=== PATIENT | female | born 1935 | race Caucasian/White ===

== ENCOUNTER 2017-08-06 11:06 | Inpatient (IN) | payer OTHER ==
[~2017-08-06] VITALS: Ht 177.8 cm; Wt 60.8 kg
[~2017-08-06 11:06] MED LIST: ASPIRIN EC81 M1 PO; ASPIRIN325 PO; BIOTIN800 MCG PO; CENTRUM SILVER1 EAC4 PO; ENOXAPARIN40 MG/0.1 SUBQ; IRON325 PO; METAMUCIL PAC1 UDPKT PO; MILK OF MA2400 MG/10 PO; NIFEDIPINE ER30 M1 PO; OSTEO BI-FLEX1 EAC1 PO; PERCOCET PO; STRONTIUM NITRAT1 GM; VITAMIN B-12500 MCG PO; WOMAN'S LAXATIVE5 M1 PO; ZANTAC 150MG T150 MG PO
[2017-08-06 11:11] VITALS: BP 160/62
[2017-08-06 12:11] LABS: HEMATOCRIT 24.1 % (37.0-47.0); HEMOGLOBIN 8.1 gm/dL (12.0-15.0); MCH 35.4 pg (26.0-34.0); MCHC 33.7 g/dL (28.0-37.0); MPV 8.3 fl. (7.2-11.1); NUCLEATED RBCS 0 /100WBC; PLATELET COUNT* 398 thou/uL (150-400); RDW-CV 14.1 % (10.5-14.5)
[2017-08-06 12:17] LABS: ANION GAP 10 mmol/L (7-16); BUN 35 mg/dL (7-18); CALCIUM 8.8 mg/dL (8.5-10.1); CHLORIDE 102 mmol/L (98-107); CO2 26 mmol/L (21-32); CREATININE 1.1 mg/dL (0.6-1.3); GLUCOSE 145 mg/dL (70-99); POTASSIUM 4.6 mmol/L (3.5-5.1); SODIUM 138 mmol/L (136-145)
[2017-08-06 12:18] LABS: APTT 27.5 Seconds (25.0-31.3); INR 0.9; PROTIME 9.2 Seconds (9.20-11.50)
[2017-08-06 12:24] LABS: ALBUMIN 3.4 g/dL (3.4-5.0); ALKALINE PHOSPHATASE 69 U/L (46-116); SGOT 57 U/L (15-37); SGPT 33 U/L (30-65); TOTAL BILIRUBIN 0.8 mg/dL (<0.1-1.0); TOTAL PROTEIN 6.3 g/dL (6.4-8.2); TROPONIN-I LEVEL <0.06 ng/mL (<0.06)
[2017-08-06 12:24] LABS: URINE BLOOD NEGATIVE (Negative); URINE CLARITY CLEAR; URINE COLOR YELLOW; URINE GLUCOSE-RANDOM NEGATIVE (Negative); URINE KETONES TRACE (Negative); URINE LEUKOCYTES-REFLEX NEGATIVE (Negative); URINE NITRITE-REFLEX NEGATIVE (Negative); URINE PROTEIN NEGATIVE (Negative); URINE SPECIFIC GRAVITY 1.025 (1.005-1.030); URINE UROBILINOGEN 0.2 E.U./dl (0.2-1.0)
[2017-08-06 12:26] LABS: ICTOTEST (BILI CONFIRMATORY) Negative (Negative); URINE BILIRUBIN 1+ (Negative)
[2017-08-06 12:28] LABS: ABSOLUTE BASOPHILS 0.1 thou/uL (0.0-0.2); ABSOLUTE LYMPHOCYTES 0.6 thou/uL (0.8-5.3); ABSOLUTE MONOCYTES 0.8 thou/uL (0.0-1.2); ABSOLUTE NEUTROPHILS 10.4 thou/uL (1.6-8.1); PLATELET ESTIMATE ADEQUATE
--- NOTE | 2017-08-06 12:33 | NUR ---
PT GAVE ALL JEWELRY (1 YELLOW METAL NECKLACE W/ WHALE TALE PENDANT, 1 WHITE METAL RING W/ MULTIPLE WHITE STONES, 6 WHITE METAL RINGS W/O STONES, 1 WHITE WATCH, 2 WHITE METAL BRACELETS OF WHICH ONE HAS CHARMS) TO FAMILY TO TAKE HOME.
[2017-08-06] MEDS ORDERED: NORVASC5 MG PO (12:51)
[2017-08-06] MEDS ORDERED: OSTEO BI-FLEX1 EAC1 PO (12:52)
[2017-08-06] MEDS ORDERED: TRAMADOL 50 MG50 MG PO (12:52)
[2017-08-06] MEDS ORDERED: ZANTAC 150MG T150 MG PO (12:52)
[2017-08-06 14:41] VITALS: BP 116/64
--- NOTE | 2017-08-06 17:48 | NUR ---
RECEIEVED REPORT FROM TIFFANIE IN ER AND ASSUMED CARE OF PT @ 1450.PT IS A/O X4 WITH SOME CONFUSION, BP SLIGHTLY ELEVATED @ 146/64, TRACING SINUS TACH ON MONITOR, LUNGS SOUND CLEAR, LIN IN PLACE DUE TO IMMOBILITY FROM HIP FRACTURE. PT IS CALM AND COOPERATIVE, DENIES PAIN AT TIME OF ASSESSMENT. PT WILL REMAIN ON BEDREST UNTIL AFTER SURGERY TOMORROW.FAMILY AT BEDSIDE GOING TO TAKE VALUABLE PERSONAL BELONGINGS HOME. PT EDUCATED ON FALL PRECUATIONS AND CALL LIGHT IN PLACE.
--- NOTE | 2017-08-06 18:40 | NUR ---
SPEECH THERAPY CAME TO SEE PT AND CHANGED HER DIET TO NECTAR THICK LIQUIDS AND MECH-GROUND AFTER PT WAS COUGHING WHEN SWALLOWING LIQUIDS.PT WILL BE NPO AFTER MIDNIGHT FOR SURGERY IN AM. CONSENTS HAVE BEEN OBTAINED AND SIGNED.PT VISITING WITH FAMILY MEMBERS AT BEDSIDE. FALL PRECAUTIONS AND CALL LIGHT IN PLACE. HOURLY ROUNDING COMPLETED FOR PT SAFETY.PT TO RECIEVE ONE UNIT OF BLOOD PER ORTHO ORDER PRIOR TO SURGERY TONIGHT.
[2017-08-06 20:00] VITALS: BP 118/60
[2017-08-06 20:39] VITALS: BP 109/64; BP 114/58; BP 117/58; BP 120/61; BP 123/56
[2017-08-07] VITALS (8 sets, daily range): BP systolic 102–146; BP diastolic 54–67
[2017-08-07 05:35] LABS: HEMOGLOBIN 7.3 gm/dL (12.0-15.0); MCH 34.6 pg (26.0-34.0); MCHC 34.9 g/dL (28.0-37.0); MPV 8.3 fl. (7.2-11.1); RBC 2.12 mil/uL (4.20-5.00); RDW-CV 18.6 % (10.5-14.5); WBC 8.8 thou/uL (4.0-11.0)
[2017-08-07 05:37] LABS: MCV 99.1 fL (80.0-100.0)
[2017-08-07 06:03] LABS: CALCIUM 7.8 mg/dL (8.5-10.1); CREATININE 0.8 mg/dL (0.6-1.3); MAGNESIUM 2.1 mg/dL (1.8-2.4); POTASSIUM 3.8 mmol/L (3.5-5.1)
--- NOTE | 2017-08-07 07:53 | NUR ---
A&O X4 CONFUSED AT TIMES. PT NEEDS REORIENTATION. GIVEN X1 UNIT OF BLOOD NO REACTION NOTED. PT HGB WAS LOW IN AM MD ORDERED SECOND UNIT OF BLOOD BEFORE SURGERY. PT ON BED REST. PT SR-ST ON THE MONITOR. PRE-OP CHECKLIST STARTED. VITALS WNL. FALL PRECATUIONS IN PLACE. HOURLY ROUNDING FOR SAFETY.
--- NOTE | 2017-08-07 09:38 | NUR ---
ASSUMED CARE OF PT THIS AM AROUND 0715- CELLULAR BIOLOGIST IN PLACE ORDERED, TRACING SR- UPON ASSESSMENT PT NOTED TO BE RESTING IN BED, FAMILY AT SIDE VISITING- PT A&O X3, WITH INTERMITTENT CONFUSION NOTED- BED REST IN PLACE INDICATED- LIN IN PLACE D/D CLEAR JEY URINE, CONTINENT OF BOWEL- LCTA, RESP EVEN AND UN-LABORED- VSS, O2 SAT 100% ON RA- NO C/O DYSPNEA NOTED- ABDOMEN SOFT/ROUND/NON-TENDER, BS X4 QUADS- LAST BM REPORTED 08/05/17- 2+ EDEMA WITH BRUISING NOTED TO UPPER RIGHT LOWER EXTREMITY R/T HIP FX- EXTERNAL ROTATION NOTED TO RIGHT LE, PERIPHERAL PULSES +1- IV NOTED TO LEFT AC INTACT, IVF INFUSING ORDERED- 1 UNIT OF BLOOD ORDERED TO BE STARTED PRIOR TO PLANNED SURGERY THIS AM- BLOOD STARTED INDICATED AT 0735- PACU HERE TO GET PT FOR SURGERY WITH PT LEAVING UNIT VIA BED AT 0813, BLOOD INFUSSING AT TIME OF TRANSFER- CLARIFICATION FOR OKAY FOR SURGERY VERIFIED WITH AND COMMUNICATED TO PACU- ALL NEEDS MET AT THIS TIME-WCTM
--- NOTE | 2017-08-07 12:59 | NUR ---
PT RETURNEDTO UNIT POST RIGHT ORIF @ 1220 VIA BED- VS 98.5 18 112/61 83 98% ON RA- CONTINUUOS PULSE O2 IN PLACE ORDERED- IVF RESSUMED TO LEFT AC ORDERED, IV ABT GIVEN PRESCIBED- I UNIT RBC REPORTED TO HAVE BEEN GIVEN DURRING PROCEDURE- PT A&O X4- DENIES PAIN- REGULAR DIET IN PLACE, NECTAR THICK LIQUIDS INDICATED- DRESSING IN PLACE TO RU HIP AND LOWER LEG, INTACT- ALL NEEDS MET AT THIS TIME-WCTM
--- NOTE | 2017-08-07 13:05 | EKG ---
[place] [address] ELECTROCARDIOGRAM REPORT Name: NJ GAYTAN Room: [address] ADM IN M.R.#: [id number] Admission: 08/06/17 Attend Phys: Rich Rivera, Discharge: Date of : 37 Report #: [id number] THIS REPORT FOR: //name// [facility] ED Test Date: 2017-08-06 Test Time: 11:24:01 Pat Name: NJ GAYTAN Department: Room: [facility] Gender: F Human Service Coordinator: Femi BETTS : 1935 Requested By: Irineo Sheppard Order Number: [id number] MD: Ze Cuello Measurements Intervals [place] Rate: 152 P: HI: QRS: 33 QRSD: 95 T: QT: 333 QTc: 530 Interpretive Statements NSR Low voltage, extremity leads RSR' in V1 or V2, probably normal variant Borderline T wave abnormalities Artifact in lead(s) II,III,aVF,V1,V2,V3,V4,V5,V6 Compared to ECG 11/19/2014 12:56:12 Low QRS voltage now present RSR' in V1 or V2 now present T-wave abnormality still present Electronically Signed On 08-07-2017 13:04:58 CDT by Ze Cuello [email or web address] <ELECTRONICALLY SIGNED> By: Flavia Cuello MD, [facility] 08/07/17 1304 1124 1124 Flavia Cuello MD, [facility] /EPI
--- NOTE | 2017-08-07 13:06 | EKG ---
[place] [address] ELECTROCARDIOGRAM REPORT Name: NJ GAYTAN Room: [address] ADM IN M.R.#: [id number] Admission: 08/06/17 Attend Phys: Rich Rivera, Discharge: Date of : 37 Report #: [id number] THIS REPORT FOR: //name// [facility] ED Test Date: 2017-08-06 Test Time: 14:12:26 Pat Name: NJ GAYTAN Department: Room: [facility] Gender: F Golf Caddy: : 1935 Requested By: Irineo Sheppard Order Number: [id number] MD: Ze Cuello Measurements Intervals [place] Rate: 104 P: 55 ME: 149 QRS: 24 QRSD: 92 T: 86 QT: 337 QTc: 444 Interpretive Statements Sinus tachycardia Low voltage, extremity leads Compared to ECG 11/19/2014 12:56:12 Low QRS voltage now present Ventricular premature complex(es) no longer present T-wave abnormality no longer present Electronically Signed On 08-07-2017 13:06:22 CDT by Ze Cuello [email or web address] <ELECTRONICALLY SIGNED> By: Flavia Cuello MD, [facility] 08/07/17 [phone] Flavia Cuello MD, [facility] /EPI
[2017-08-07 13:38] LABS: HEMOGLOBIN 10.5 gm/dL (12.0-15.0)
--- NOTE | 2017-08-07 17:08 | NUR ---
PT CURRENLTY SETTING UP IN BED, EATING DINNER- PROGRAM ARCHITECT IN PLACE AND CONTINUED ORDERED, TRACING SR- IV TO LEFT AC INTACT, IVF INFUSING PRESCIBED- HGB POST ORIF RESULTED AT 10.5 @ 1326- CPK NOTED TO BE DECREASING IT RESULTS AT 477- DRESSINGS REMAIN INTACT TO RIGHT HIP AND RLE, NO VISIBLE DRAINAGE NOTED- SCD'S IN PLACE ORDERED- ABDUCTION PILLOW IN PLACE INDICATED- PT CALLED TO COMMUNICATE THAT THEY WOULD BE DOING ASSESSMENT TIMBO 08/08/17- PT C/O PAIN X1, PRN OXY GIVEN AT 1625- PT REPORTS MEDICAITONS TO BE EFFECTIVE- CALL LIGHT AND PERSONAL BELONGINGS WITH IN REACH- PT CHECKED ON FREQUENTLY R/T SAFETY/NEEDS- ALL NEEDS MET AT THIS TIME-WCTM
[2017-08-08] VITALS (7 sets, daily range): BP systolic 93–123; BP diastolic 45–62
--- NOTE | 2017-08-08 05:32 | NUR ---
A&O X4 CALM COOPERITVE. PT NEEDS REORINTATION AT TIMES. PT ON TOE TAP WIEGHT BEARING. SR ON THE MONITOR. LIN FOR IMOBLIZATION. DENIES PAIN. ABDUCTION PILLOW. VITALS WNL. FALL PRECATUIONS IN PLACE. HOURLY ROUNDING FOR SAFETY.
[2017-08-08 05:38] LABS: HEMOGLOBIN 8.7 gm/dL (12.0-15.0)
[2017-08-08 05:46] LABS: CALCIUM 7.6 mg/dL (8.5-10.1); CREATININE 0.7 mg/dL (0.6-1.3); POTASSIUM 3.8 mmol/L (3.5-5.1)
--- NOTE | 2017-08-08 13:38 | NUR ---
ASSUMED PT CARE AT 0700 PT IS ALERT AND ORIENTED X 4 PT HAS A HISTORY OF FALLS PT IS A FALL RISK BED ALARM IS ON, PT STATES SHE HAS SOME PAIN AVE PAIN MEDS FOR PT TO WORK WITH PHYSICAL THERAPY WHICH PT DID PT HAS WILLIAMOR REBEKAH AND DELIA FOR IMMOBALIZATION, DR MORALES ORDERED TO STOP TELEMETY PT IS MED SURG STATUS PT IS BEIN TRANSFERED TO ORTHO SURG AVE REPORT TO MADDISON AND PT WAS TRANSFERED TO RM 104
--- NOTE | 2017-08-08 14:30 | NUR ---
ASSUMED CARE OF PATIENT AT 1338 AFTER TRANSFER TO ROOM 104 FROM TELEMETRY UNIT. PATIENT AWAKE, ALERT, AND ORIENTED. NO IV ACCESS. STARTED NEW IV IN PATIENT'S LEFT AC. IVF FLUIDS RESTARTED AND ANTIBIOTIC INFUSING AT THIS TIME. PHYSICAL ASSESSMENT COMPLETED. VITAL SIGNS STABLE. NURSING WILL CONTINUE TO MONITOR.
[2017-08-08 15:10] LABS: IgA 127 mg/dL (64-422)
[2017-08-08 15:10] LABS: IgA 127 mg/dL (64-422)
--- NOTE | 2017-08-08 16:43 | NUR ---
PT.HAS REHAB EVAL ORDER. DID NOT DO WELL IN PT TODAY BUT WAS HER FIRST TIME. DISCUSSED WITH HER PLAN B IF INSURANCE DOESN'T AUTH REHAB OR REHAB CANT TAKE. SHE SEEMED A BIT CONFUSED ON THINGS. SHE DID LAY FOR HRS ON HER FLOOR BEFORE SON FOUND HER. SHE SAID SHE WILL MOST LIKELY NOT BE ABLE TO LIVE ALONE AGAIN. SHE MIGHT BE ABLE TO GO LIVE WIHT HER SON. HE HAS A BI HOUSE BUT HAS STAIRS. SHE WOULD LIKE REFERRAL MADE TO [facility] FOR SNF AT THIS TIME FOR PLAN B. FAXED REFERRAL TO YARELIS/[facility]KEY. WILL NEED INSURANCE AUTH FOR SNF. WILL CALL SON TOMORROW.
--- NOTE | 2017-08-08 17:53 | NUR ---
PATIENT REMAINS ALERT AND ORIENTED APPROPRIATELY. HAS EPISODES OF CONFUSION AT TIMES BUT IS EASILY REORIENTED. ABDUCTOR PILLOW IN PLACE. LIN CATHETER HAS BEEN DISCONTINUED. PATIENT HAS DECLINED PAIN MEDICATION SINCE SHE TRANSFERRED TO THIS UNIT. FAMILY IN ROOM AT THIS TIME. DENIES NEEDS. CALL LIGHT WITHIN REACH. NURSING WILL CONTINUE TO MONITOR.
[2017-08-09 00:19] VITALS: BP 114/53
--- NOTE | 2017-08-09 00:33 | NUR ---
PATIENT RESTING QUIETLY ON HOURLY ROUNDS. REPOSITONED EVERY TWO HOURS. COCCYX RED, BLANCHABLE. DRESSING TO RIGHT HIP IS DRY AND INTACT. VITALS STABLE ON ROOM AIR. CONTINUE TO MONITOR.
[2017-08-09 04:20] VITALS: BP 126/65
[2017-08-09 05:32] LABS: ALBUMIN 1.9 g/dL (3.4-5.0); ALKALINE PHOSPHATASE 43 U/L (46-116); ANION GAP 7 mmol/L (7-16); BUN 8 mg/dL (7-18); CALCIUM 7.6 mg/dL (8.5-10.1); CHLORIDE 110 mmol/L (98-107); CHOLESTEROL 107 mg/dL (<200); CO2 26 mmol/L (21-32); CREATININE 0.6 mg/dL (0.6-1.3); GLUCOSE 98 mg/dL (70-99); HDL CHOLESTEROL 56 mg/dL (>40); LDL CHOLESTEROL 40 mg/dL (<100); POTASSIUM 3.1 mmol/L (3.5-5.1); SGOT 37 U/L (15-37); SGPT 26 U/L (30-65); SODIUM 143 mmol/L (136-145); TC:HDL 1.9 Ratio (Not establshd); TOTAL BILIRUBIN 1.4 mg/dL (<0.1-1.0); TOTAL PROTEIN 4.6 g/dL (6.4-8.2); TRIGLYCERIDE 59 mg/dL (<150); VLDL 12 mg/dL (<40)
[2017-08-09 05:42] LABS: ABSOLUTE LYMPHOCYTES 0.9 thou/uL (0.8-5.3); ABSOLUTE MONOCYTES 0.8 thou/uL (0.0-1.2); ABSOLUTE NEUTROPHILS 4.7 thou/uL (1.6-8.1); BASOPHILS 0.1 %; EOSINOPHILS 0.4 %; HEMATOCRIT 22.6 % (37.0-47.0); HEMOGLOBIN 7.8 gm/dL (12.0-15.0); LYMPHOCYTES 14.4 %; MCH 33.3 pg (26.0-34.0); MCHC 34.7 g/dL (28.0-37.0); MONOCYTES 12.1 %; MPV 8.3 fl. (7.2-11.1); NUCLEATED RBCS 0 /100WBC; PLATELET COUNT* 317 thou/uL (150-400); RBC 2.35 mil/uL (4.20-5.00); WBC 6.4 thou/uL (4.0-11.0)
[2017-08-09 06:04] LABS: SERUM ASSESSMENT Clear
[2017-08-09 10:20] VITALS: BP 139/72
--- NOTE | 2017-08-09 11:31 | NUR ---
CM SPOKE WITH SON,BRIANNA AND PT. SON SAID NO TO [facility]. HE WOULD LIKE REFERRALS MADE TO [facility],[place] AND [facility]. HE WILL GO TO TOUR EACH ONE TODAY. LEFT VM FOR VERNA/PRETTY AND FAXED REFERRAL. SPOKE WITH [facility] AND FAXED REFERRAL, FAXED TO JUANA /VI AND LEFT HER A VM.
[2017-08-09 14:11] LABS: IgG 371 mg/dL (700-1600); IgM 25 mg/dL (26-217)
[2017-08-09 14:11] LABS: IgG 380 mg/dL (700-1600); IgM 28 mg/dL (26-217)
[2017-08-09 16:05] VITALS: BP 121/57
--- NOTE | 2017-08-09 16:26 | NUR ---
RECEIVED CONSULT FOR POSSIBLE REHAB ADMISSION. CONSULT HAS BEEN ACKNOWLEDGED BY ORCHESTRATOR AND DR. ALFREDO. PT ADMITTED WITH RIGHT HIP FX AND IS S/P ORIF. SHE IS TTWB MAX A X2 FOR TRANSFERS, NOT AMBULATING WITH PT AND MOSTLY DEPENDENT FOR ADL'S WITH OT. PATIENTS INSURANCE IS OUT OF NETWORK WITH NO OUT OF NETWORK BENEFITS FOR OUR ACUTE REHAB. PATIENT WOULD UNLIKELY BE ABLE TO TOLERATE OR PARTICIPATE IN 3 HOURS OF THERAPY AT THIS TIME BUT WOULD BENEFIT FROM SNF AT DISCHARGE. THANK YOU FOR THIS CONSULT.
--- NOTE | 2017-08-09 16:30 | NUR ---
JILLIAN SPOKE WITH SON,MARQUEZ. THEY HAD TOURED ALL 3 FACILITIES AND WOULD LIKE PT.TO GO TO [facility]. WILL NOTIFY [facility] IN AM AND SHE WILL GET INS.AUTHORIZATION.
--- NOTE | 2017-08-09 16:58 | NUR ---
PT HAS CONFUSION THIS SHIFT AND IS ALERT TO SELF AND SITUATION. VSS THIS SHIFT. LUNGS CLEAR THROUGHOUT. PT INCONTINENT OF BOWEL AND BLADDER AND REQUEST TO USE THE BEDPAN, BUT STAFF IS ENCOURAGING BEDSIDE COMMODE. PT HAS REDNESS ON COCCYX BUT BLANCHING IS STILL PRESENT AT THIS TIME AND SKIN IS INTACT. BARRIER CREAM IS BEING APPLIED WHEN NECESSARY. PT IS NON COMPLIANT WITH Q2 TURNS, SHE REMOVES THE PILLOW BEING USED TO OFF LOAD PRESSURE, A WEDGE HAS BEEN PLACED AT THE BEDSIDE AND STAFF WILL ATTEMPT TO SEE IF THIS WORKS BETTER. PT HAD VIDEO SWALLOW STUDY THIS SHIFT AND IS NOW ON A REGULAR DIET WITH THIN LIQUIDS. PT VERBALIZED NO PAIN THIS SHIFT WHEN NOT AMBULATING. AMBULATION DIFFICULTY THIS SHIFT, PT IS TO USE TOE TOUCH TO RLE BUT CURRENTLY REQUIRES MAX ASSIST WITH 2. HOURLY ROUNDING HAS BEEN MAINTAINED THIS SHIFT. WILL CONTINUE TO ASSESS AND MONITOR.
[2017-08-09 17:59] LABS: MAGNESIUM 1.6 mg/dL (1.8-2.4); POTASSIUM 3.5 mmol/L (3.5-5.1)
--- NOTE | 2017-08-09 18:31 | NUR ---
THIS NURSE AGREES WITH ALL CHARTING AND DOCUMENTATION COMPLETED BY MARIPOSA LEE RN THIS SHIFT.
[2017-08-09 23:51] VITALS: BP 129/59
[2017-08-10 00:42] VITALS: BP 128/75
--- NOTE | 2017-08-10 05:23 | NUR ---
PATIENT ORIENTED X4 FOR FORGETFUL AT TIMES. REPOSITIONED EVERY TWO HOURS. DENIES NEED FOR PAIN MEDICATION. DRESSING DRY AND INTACT TO RIGHT HIP. IVF INFUSING ORDERED. VITALS STABLE. CONTINUE TO MONITOR.
[2017-08-10 09:33] VITALS: BP 134/73
--- NOTE | 2017-08-10 10:08 | NUR ---
NOTIFIED [facility] AT 0830 THAT PT. AND FAMILY CHOSE [facility]. SHE WILL OBTAIN INSURANCE AUTHORIZATION. PT.IS READY FOR DISCHARGE TODAY.
[2017-08-10] MEDS ORDERED: ELIQUIS2.5 MG PO (11:10)
[2017-08-10] MEDS ORDERED: MIRALAX17 GM PO (11:13)
[2017-08-10] MEDS ORDERED: TYLENOL EXTRA500 MG PO (11:14)
[2017-08-10] MEDS ORDERED: OXYCODONE HCL 55 MG PO (11:19)
[2017-08-10 11:27] VITALS: BP 134/73
--- NOTE | 2017-08-10 12:34 | NUR ---
[facility] OBTAINED INSURANCE AUTH ON PT. SHE WILL ARRANGE [facility] FOR 1300. CHART COPIED TO GO WITH PT. NURSING TO CALL REPORT TO [phone]. FAXED HER DISCHARGE ORDERS. NOTIFIED SON,BRIANNA ON TRANSFER TIME. HE SAID HE WOULD BE TO SNF ABOUT 2PM. PT.INFORMED.
--- NOTE | 2017-08-18 19:10 | CON ---
[address] [address] CONSULTATION Name: NJ GAYTAN Room: [address] IN M.R.#: [id number] Admission: 08/06/17 Attend Phys: Rich Rivera, Discharge: 08/10/17 Date of : 37 Report #: [id number] THIS REPORT FOR: //name// CC: [facility] physician/PCP Rich Rivera DATE OF SERVICE: 08/08/2017 HISTORY OF PRESENT ILLNESS: This is an 81-year-old female patient who was evaluated by me for the possibility of syncope. The patient gives a history that she fell down. She was alone, so there is no firsthand witness. She gives a history that she fell down because she tripped, but she also indicated that she called her son and when son came he noticed that she may have been some incoherent. She is hypertensive, but it is not clear what her blood pressure was at that time. The records indicate that the son may have just come in to see her and she did not call. She does not have any very good memory about the whole episode. She is reasonably certain that she did not hit her head. REVIEW OF SYSTEMS: Indicate that this patient does have hypertension. She does not know what her blood pressure was at that time. She has a history of hysterectomy. She takes her medication on a regular basis. She denies any prior history of stroke. She does not drive, but she indicates her memory is reasonably well at her baseline. She had a hip injury for which she had surgery yesterday. She does have some history of osteoporosis and periodontal disease. Otherwise, she indicates she is probably feeling back to her baseline and is not having any new eye, ENT, cardiac, respiratory, GI, , constitutional, dermatological, hematological, psychiatric, throat, endocrine, allergic symptom associated with present symptomatology and her 14-point review of system is noncontributory. PAST MEDICAL HISTORY: Negative for stroke. FAMILY HISTORY: Negative for early age stroke. SOCIAL HISTORY: She does not smoke. PHYSICAL EXAMINATION: Indicate that the patient is alert, responsive. She is oriented. Her speech, concentration, fund of knowledge and memory is at her baseline. Cranial nerve examination 2-12 is unremarkable. Neuromuscular examination is limited because of the present surgery, but she moves both toes well. Her position sense is intact. Reflexes in the upper extremities are symmetrical. Tone in the upper extremities is symmetrical. There is no cerebellar sign. I did not make her walk because of her recent hip surgery. I could not have a very good look at the patient's fundus. She is reasonably well-developed individual who does not have any dysmorphic features of eyes, ears and face. There is no thyroid mass or carotid bruit. Her blood pressure [facility] [address] [place] [address] CONSULTATION Name: NJ GAYTAN Room: [address] IN M.R.#: [id number] Admission: 08/06/17 Attend Phys: Rich Rivera, Discharge: 08/10/17 Date of : 37 Report #: [id number] is 197/58, respirations 16, pulse is 74, temperature is 98. Pulses are somewhat difficult to feel, but she has no edema, cyanosis or jaundice. Cardiac examination shows unremarkable heart sounds, no murmur, but sometime it looks irregular, but difficult for me to tell. No respiratory difficulty or rhonchi. She did have a CT scan of the head and a carotid Doppler and that appeared to be mostly unremarkable. IMPRESSION: This patient's fall appeared to be secondary to mechanical difficulty. I am not sure why she had confusion and speech difficulty when it happened, she is back to her baseline. RECOMMENDATIONS: I will get an EEG done to make sure there is no abnormality there. I will suggest checking any cardiological etiology for the patient's symptoms. I will defer that evaluation to you. I will check a lipid profile tomorrow and we might put her on aspirin for the time being. When she stabilized from the hip point and the when surgeon feels comfortable we will do an MRI in this patient. Thank you very much for this referral and I discussed all of it with the patient in great detail and she understands and she wants to follow up this plan. <ELECTRONICALLY SIGNED> By: Riki Alexander MD 08/18/171909 [id number] Alexander MD /nt
--- NOTE | 2017-09-19 16:45 | OP ---
[address] [address] OPERATIVE REPORT Name: NJ GAYTAN Room: [address] IN M.R.#: [id number] Admission: 08/06/17 Attend Phys: Rich Rivera, Discharge: 08/10/17 Date of : 37 Report #: [id number] THIS REPORT FOR: //name// CC: [facility] physician/PCP Rich Rivera DICTATED BY: Santhosh Pearson DO DATE OF SERVICE: 08/07/2017 PREOPERATIVE DIAGNOSIS: Closed comminuted right intertrochanteric femur fracture. POSTOPERATIVE DIAGNOSIS: Closed comminuted right intertrochanteric femur fracture. PROCEDURE PERFORMED: 1. Open reduction internal fixation of the right comminuted intertrochanteric femur fracture. 2. Physician directed fluoroscopy. IMPLANTS USED: Include a Carline 420 mm intramedullary gamma nail with a 105 mm cephalomedullary screw and 2 distal interlocking static screws measuring 47.5 mm and 52.5 mm. SURGEON: Nicolas Garcia DO. PATENT CHEMIST: Santhosh Pearson DO. SECOND RANCH COOK: Wiliam Farrell DO. ANTIBIOTICS: Ancef 2 grams given during the case as well as Zosyn ordered overnight. ESTIMATED BLOOD LOSS: 100 mL. INDICATIONS FOR PROCEDURE: The patient is a pleasant 81-year-old female who sustained a ground level fall at home, tripping over her dog's bed. She landed directly on the right hip, had immediate pain, discomfort and inability to bear weight. She does report that she was down for 14 hours. She was seen in the Emergency Department here at [facility] and x-rays were taken demonstrating a closed comminuted fracture of the right intertrochanteric femur region and she was admitted for surgical intervention. Risks, benefits, complications, terms, indications for surgery were discussed with the patient as well as her family at bedside. These risks include risk to neurovascular structures, nonunion, malunion, risk for infection, need for repeat surgery, [place] [address] OPERATIVE REPORT Name: NJ GAYTAN Room: [address] IN M.R.#: [id number] Admission: 08/06/17 Attend Phys: Rich Rivera, Discharge: 08/10/17 Date of : 37 Report #: [id number] her baseline function and continued functional deficits. We also had a thorough discussion with her regarding the 1 year mortality of this injury type. Although since we are doing this within 48 hours of her injury, she does have a reduced risk in that regard. DESCRIPTION OF PROCEDURE: The patient was seen in the preoperative holding area and once again, we had discussion with her regarding the surgery. Her questions were adequately answered to her satisfaction at this time. The correct operative side was marked and consent was verified. She was then transferred to the operative suite and placed supine on the operating table and given the benefit of general anesthesia. She was then transferred to the [place] table and secured in place appropriately. At this point, closed reduction maneuvers were performed. Due to the comminuted nature of her fracture, it was decided that we would perform an open reduction as part of our surgical intervention. The patient was then prepped and draped in normal sterile fashion and a timeout was performed. Those in attendance were in agreement correct operative site of procedure to be performed. We used fluoroscopy at this point to verify the position of the fracture site and a lateral incision was made using a 10 blade scalpel and this was carried down to the level of the IT band, which was then incised. Using blunt dissection at this point to the level of the fracture and using multiple instruments and manipulation methods, we were able to open reduce her fracture site. Once our reduction was in place, we then once again used a skin knife with a 10 blade to perform our entry incision for our intramedullary device. This was taken down through the level of the IT band. Blunt dissection taken to the level of the greater trochanter. Her starting awl was then inserted and taken to the level of the lesser trochanter followed by insertion of our long guidewire. We then used a tissue protector guide and reamed starting at 11 up to 13 mm for adequate reaming of our 11 mm nail. At this point, our reduction was again confirmed and the intramedullary device was passed to the appropriate level with verification via fluoroscopy. We then used the drill guide sleeves and this fit through our already made lateral incision for our open reduction and this was taken to the level of the bone. We then maintained our reduction and drilled for our cephalomedullary screw and measured and found to be 105 mm. The screw was then placed with reduction being held and once again confirmed with fluoroscopy. The fracture was then compressed using the drill guide sleeve and our proximal locking screw was placed. We then removed our guide and turned our attention to our perfect circles. Proper lateral of the distal femur was obtained and an incision was made for our distal interlock screws in a lateral longitudinal method. This was taken down through the level of the IT band once again and then, we used a drill with the assistance of fluoroscopy to obtain our 2 distal locking drill holes. The proximal one measured 47.5 mm, distal measured 52.5 mm [place] [address] OPERATIVE REPORT Name: NJ GAYTAN Room: [address]#: [id number] Admission: 08/06/17 Attend Phys: Rich Rivera, Discharge: 08/10/17 Date of : 37 Report #: [id number] distal interlocking screws were placed. Confirmation of our insertion of the intramedullary device was then confirmed with fluoroscopy and images were saved to the chart. At this point, we thoroughly irrigated out all 3 lateral wounds and the 2 proximal wounds were closed, the IT band using 0 Vicryl in an interrupted fashion. Skin was closed using 2-0 Vicryl followed by simeon. The incisions were then dressed sterilely and she was awakened from anesthesia and transferred to the bed and to PACU in stable condition. All needle and scrub counts were correct at the end of the case x 2. Dr. Garcia was present throughout the decision making process of the case. DISPOSITION: The patient was transferred to the PACU in stable condition. PLAN: For them transfer to the telemetry floor for continued postoperative monitoring. H and H was ordered to trend her anemia. We do have 2 units of blood on hold. One unit of blood was given during surgery. <ELECTRONICALLY SIGNED> By: Nicolas Garcia DO 09/19/17 1645 1120 [id number] Garcia DO /nt
== END 2017-08-10 14:20 | DRG 480 ==
LOC: M.ERS 11:06 → M.TBA-ER 12:18 → M.2W 12:18 → M.ORTHSURG 08-08 14:05
PROVIDERS: Emergency Medicine; Internal Medicine; Orthopaedic Surgery; Psychiatry & Neurology Neuromuscular Medicine; ADMIT Family Medicine
PROC: 0QS604Z Reposition Right Upper Femur with Internal Fixation Device, Open Approach (ICD-10-PCS; principal; 2017-08-07)
DX: S72.141A Displaced intertrochanteric fracture of right femur, initial encounter for closed fracture (principal); G93.40 Encephalopathy, unspecified; R65.10 Systemic inflammatory response syndrome (SIRS) of non-infectious origin without acute organ dysfunction; J98.11 Atelectasis; D62 Acute posthemorrhagic anemia; M62.82 Rhabdomyolysis; I10 Essential (primary) hypertension; J02.9 Acute pharyngitis, unspecified; D53.9 Nutritional anemia, unspecified; F03.90 Unspecified dementia, unspecified severity, without behavioral disturbance, psychotic disturbance, mood disturbance, and anxiety; F10.929 Alcohol use, unspecified with intoxication, unspecified; M81.0 Age-related osteoporosis without current pathological fracture; W01.0XXA Fall on same level from slipping, tripping and stumbling without subsequent striking against object, initial encounter; Z90.710 Acquired absence of both cervix and uterus; Z98.41 Cataract extraction status, right eye; Z98.42 Cataract extraction status, left eye; Z79.899 Other long term (current) drug therapy; Z88.8 Allergy status to other drugs, medicaments and biological substances; Y93.89 Activity, other specified; Y92.89 Other specified places as the place of occurrence of the external cause; Y99.8 Other external cause status

== ENCOUNTER 2020-02-25 16:43 | Inpatient (IN) | payer MEDICARE ==
[~2020-02-25] VITALS: Ht 157.5 cm; Wt 44.0 kg
[~2020-02-25 16:43] MED LIST changes: +ELIQUIS2.5 MG PO; +MIRALAX17 GM PO; +NORVASC5 MG PO; +OXYCODONE HCL 55 MG PO; +TRAMADOL 50 MG50 MG PO; +TYLENOL EXTRA500 MG PO
[2020-02-25 16:59] VITALS: BP 134/106
[2020-02-25 17:21] LABS: URINE BLOOD NEGATIVE (Negative); URINE CLARITY CLEAR; URINE COLOR YELLOW; URINE GLUCOSE-RANDOM NEGATIVE (Negative); URINE KETONES 1+ (Negative); URINE LEUKOCYTES-REFLEX NEGATIVE (Negative); URINE NITRITE-REFLEX NEGATIVE (Negative); URINE PROTEIN 1+ (Negative); URINE SPECIFIC GRAVITY >= 1.030 (1.005-1.030); URINE UROBILINOGEN 0.2 E.U./dl (0.2-1.0)
[2020-02-25 17:25] LABS: ICTOTEST (BILI CONFIRMATORY) Negative (Negative); URINE BILIRUBIN 1+ (Negative)
[2020-02-25 17:41] LABS: BE -4.7 mmol/L (-2 to +3); PO2 70.9 mmHg (75.0-100.0); pH 7.437 (7.340-7.450)
[2020-02-25 17:44] LABS: HEMATOCRIT 45.7 % (37.0-47.0); HEMOGLOBIN 15.6 gm/dL (12.0-15.0); MCH 31.8 pg (26.0-34.0); MCV 93.3 fL (80.0-100.0); MPV 7.4 fl. (7.2-11.1); NUCLEATED RBCS 0 /100WBC; PLATELET COUNT* 826 thou/uL (150-400); RBC 4.89 mil/uL (4.20-5.00); RDW-CV 15.1 % (10.5-14.5); WBC 20.4 thou/uL (4.0-11.0)
[2020-02-25 18:00] LABS: ALBUMIN 4.2 g/dL (3.4-5.0); CALCIUM 10.1 mg/dL (8.5-10.1); MAGNESIUM 2.1 mg/dL (1.8-2.4); POTASSIUM 3.4 mmol/L (3.5-5.1); TOTAL BILIRUBIN 1.3 mg/dL (<0.1-1.0); TOTAL PROTEIN 8.1 g/dL (6.4-8.2)
[2020-02-25 18:07] LABS: ABSOLUTE MONOCYTES 0.8 thou/uL (0.0-1.2); ABSOLUTE NEUTROPHILS 18.6 thou/uL (1.6-8.1)
[2020-02-25 18:10] LABS: PLATELET ESTIMATE INCREASED
[2020-02-25 18:11] LABS: LARGE PLATELETS FEW
[2020-02-25 18:13] LABS: ANISOCYTOSIS Occasional
[2020-02-25 19:58] VITALS: BP 138/73
[2020-02-25 20:00] VITALS: BP 138/73
[2020-02-25 20:11] VITALS: BP 134/82
[2020-02-26 07:30] VITALS: BP 153/93
[2020-02-26 11:45] LABS: ABSOLUTE BASOPHILS 0.1 thou/uL (0.0-0.2); ABSOLUTE LYMPHOCYTES 0.8 thou/uL (0.8-5.3); BASOPHILS 0.5 %; EOSINOPHILS 0.3 %; HEMATOCRIT 42.1 % (37.0-47.0); HEMOGLOBIN 14.2 gm/dL (12.0-15.0); LYMPHOCYTES 5.3 %; MCH 31.7 pg (26.0-34.0); MCHC 33.8 g/dL (28.0-37.0); MCV 93.8 fL (80.0-100.0); MONOCYTES 6.6 %; MPV 7.3 fl. (7.2-11.1); NUCLEATED RBCS 0 /100WBC; PLATELET COUNT* 731 thou/uL (150-400); POLYS 87.3 %; RBC 4.49 mil/uL (4.20-5.00); WBC 14.9 thou/uL (4.0-11.0)
[2020-02-26 11:59] LABS: ALBUMIN 3.5 g/dL (3.4-5.0); CALCIUM 9.1 mg/dL (8.5-10.1); CREATININE 0.9 mg/dL (0.6-1.3); POTASSIUM 3.2 mmol/L (3.5-5.1); TOTAL BILIRUBIN 1.2 mg/dL (<0.1-1.0)
[2020-02-26 13:17] LABS: CREATININE 0.8 mg/dL (0.6-1.3); POTASSIUM 3.3 mmol/L (3.5-5.1)
[2020-02-26 16:16] VITALS: BP 134/74
[2020-02-26 23:30] VITALS: BP 114/62
[2020-02-27 07:50] VITALS: BP 139/75
[2020-02-27 16:00] VITALS: BP 152/92
[2020-02-27 20:00] VITALS: BP 158/87
[2020-02-28 05:09] LABS: ABSOLUTE BASOPHILS 0.1 thou/uL (0.0-0.2); ABSOLUTE EOSINOPHILS 0.2 thou/uL (0.0-0.7); ABSOLUTE MONOCYTES 0.8 thou/uL (0.0-1.2); ABSOLUTE NEUTROPHILS 8.4 thou/uL (1.6-8.1); BASOPHILS 0.5 %; EOSINOPHILS 1.7 %; HEMATOCRIT 40.1 % (37.0-47.0); HEMOGLOBIN 13.3 gm/dL (12.0-15.0); LYMPHOCYTES 9.8 %; MCH 31.2 pg (26.0-34.0); MCHC 33.2 g/dL (28.0-37.0); MCV 94.1 fL (80.0-100.0); MONOCYTES 7.9 %; MPV 7.6 fl. (7.2-11.1); NUCLEATED RBCS 0 /100WBC; POLYS 80.1 %; RBC 4.27 mil/uL (4.20-5.00); RDW-CV 14.6 % (10.5-14.5); WBC 10.4 thou/uL (4.0-11.0)
[2020-02-28 05:24] LABS: PLATELET COUNT* 838 thou/uL (150-400)
[2020-02-28 05:31] LABS: ALBUMIN 2.9 g/dL (3.4-5.0); CALCIUM 8.5 mg/dL (8.5-10.1); CREATININE 0.8 mg/dL (0.6-1.3); TOTAL BILIRUBIN 0.9 mg/dL (<0.1-1.0); TOTAL PROTEIN 6.1 g/dL (6.4-8.2)
[2020-02-28 07:40] VITALS: BP 147/90
[2020-02-28 16:00] VITALS: BP 150/75
[2020-02-28 20:30] VITALS: BP 147/77
[2020-02-29 07:30] VITALS: BP 146/78
[2020-02-29 16:00] VITALS: BP 145/79
[2020-02-29 21:00] VITALS: BP 150/80
[2020-03-01 04:48] LABS: ABSOLUTE EOSINOPHILS 0.1 thou/uL (0.0-0.7); ABSOLUTE LYMPHOCYTES 1.1 thou/uL (0.8-5.3); ABSOLUTE MONOCYTES 1.1 thou/uL (0.0-1.2); ABSOLUTE NEUTROPHILS 9.3 thou/uL (1.6-8.1); BASOPHILS 0.4 %; EOSINOPHILS 1.1 %; HEMATOCRIT 37.3 % (37.0-47.0); HEMOGLOBIN 12.2 gm/dL (12.0-15.0); LYMPHOCYTES 9.5 %; MCH 30.6 pg (26.0-34.0); MCHC 32.8 g/dL (28.0-37.0); MCV 93.4 fL (80.0-100.0); MONOCYTES 9.5 %; MPV 7.6 fl. (7.2-11.1); NUCLEATED RBCS 0 /100WBC; POLYS 79.5 %; RBC 3.99 mil/uL (4.20-5.00); RDW-CV 14.8 % (10.5-14.5); WBC 11.8 thou/uL (4.0-11.0)
[2020-03-01 05:12] LABS: ALBUMIN 2.7 g/dL (3.4-5.0); CALCIUM 8.7 mg/dL (8.5-10.1); CREATININE 0.7 mg/dL (0.6-1.3); PLATELET COUNT* 921 thou/uL (150-400); POTASSIUM 3.2 mmol/L (3.5-5.1); TOTAL BILIRUBIN 0.6 mg/dL (<0.1-1.0); TOTAL PROTEIN 6.1 g/dL (6.4-8.2)
[2020-03-01 07:40] VITALS: BP 158/77
[2020-03-01 15:50] VITALS: BP 151/52
[2020-03-01 19:58] VITALS: BP 147/77
[2020-03-02 04:10] LABS: ABSOLUTE EOSINOPHILS 0.1 thou/uL (0.0-0.7); ABSOLUTE LYMPHOCYTES 1.1 thou/uL (0.8-5.3); ABSOLUTE MONOCYTES 1.1 thou/uL (0.0-1.2); BASOPHILS 0.3 %; EOSINOPHILS 1.1 %; HEMATOCRIT 36.7 % (37.0-47.0); HEMOGLOBIN 12.2 gm/dL (12.0-15.0); LYMPHOCYTES 8.8 %; MCH 30.7 pg (26.0-34.0); MCHC 33.3 g/dL (28.0-37.0); MCV 92.3 fL (80.0-100.0); MONOCYTES 8.8 %; MPV 7.4 fl. (7.2-11.1); NUCLEATED RBCS 0 /100WBC; RBC 3.97 mil/uL (4.20-5.00); RDW-CV 14.4 % (10.5-14.5); WBC 12.4 thou/uL (4.0-11.0)
[2020-03-02 04:31] LABS: PLATELET COUNT* 928 thou/uL (150-400)
[2020-03-02 04:40] LABS: ALBUMIN 2.7 g/dL (3.4-5.0); CALCIUM 8.9 mg/dL (8.5-10.1); CREATININE 0.7 mg/dL (0.6-1.3); POTASSIUM 3.7 mmol/L (3.5-5.1); TOTAL BILIRUBIN 0.6 mg/dL (<0.1-1.0); TOTAL PROTEIN 6.3 g/dL (6.4-8.2)
[2020-03-02 08:00] VITALS: BP 148/79
[2020-03-02 16:08] VITALS: BP 125/71
[2020-03-02 21:39] VITALS: BP 151/76
[2020-03-03 07:25] VITALS: BP 119/61
[2020-03-03] MEDS ORDERED: AUGMENTIN 875-1 EACH PO (08:57)
[2020-03-03 16:00] VITALS: BP 112/58
[2020-03-03 20:00] VITALS: BP 110/60
[2020-03-04 04:42] VITALS: BP 124/72
[2020-03-04 07:35] VITALS: BP 150/83
[2020-03-04 12:00] VITALS: BP 133/64
[2020-03-04 13:58] LABS: ABSOLUTE BASOPHILS 0.1 thou/uL (0.0-0.2); ABSOLUTE EOSINOPHILS 0.1 thou/uL (0.0-0.7); ABSOLUTE LYMPHOCYTES 0.8 thou/uL (0.8-5.3); ABSOLUTE NEUTROPHILS 8.8 thou/uL (1.6-8.1); BASOPHILS 0.5 %; EOSINOPHILS 0.6 %; HEMOGLOBIN 13.3 gm/dL (12.0-15.0); LYMPHOCYTES 7.1 %; MCH 31.2 pg (26.0-34.0); MCHC 33.1 g/dL (28.0-37.0); MONOCYTES 9.3 %; NUCLEATED RBCS 0 /100WBC; POLYS 82.5 %; RBC 4.26 mil/uL (4.20-5.00); RDW-CV 14.4 % (10.5-14.5); WBC 10.7 thou/uL (4.0-11.0)
[2020-03-04 14:06] LABS: PLATELET COUNT* 1070 thou/uL (150-400)
[2020-03-04 14:18] LABS: CALCIUM 9.2 mg/dL (8.5-10.1); CREATININE 0.9 mg/dL (0.6-1.3); POTASSIUM 3.9 mmol/L (3.5-5.1)
[2020-03-04 17:02] VITALS: BP 135/77
[2020-03-04 21:16] VITALS: BP 134/72
[2020-03-05 08:10] VITALS: BP 120/70
[2020-03-05 09:55] VITALS: BP 120/70
[2020-03-05 14:07] LABS: KAPPA FREE LIGHT CHAINS 25.6 mg/L (3.3-19.4); LAMBDA FREE LIGHT CHAINS 26.9 mg/L (5.7-26.3)
[2020-03-06 19:07] LABS: GLOBULIN TOTAL 2.6 g/dL (2.2-3.9); M-SPIKE Not Observed g/dL (Not Observed)
== END 2020-03-05 16:45 | DRG 871 ==
LOC: M.ERS 16:43 → M.3W 18:50 → M.ORTHSURG 18:50 → M.TBA-ER 18:50 → M.3W 18:50 → M.ORTHSURG 02-28 18:56
PROVIDERS: Internal Medicine; Internal Medicine Hematology & Oncology; Nurse Practitioner; Personal Emergency Response Attendant; ADMIT Internal Medicine; ATTEND Internal Medicine
DX: A41.9 Sepsis, unspecified organism (principal); G93.41 Metabolic encephalopathy; J18.9 Pneumonia, unspecified organism; E43 Unspecified severe protein-calorie malnutrition; S22.41XA Multiple fractures of ribs, right side, initial encounter for closed fracture; Z68.1 Body mass index [BMI] 19.9 or less, adult; G31.84 Mild cognitive impairment of uncertain or unknown etiology; E87.6 Hypokalemia; I10 Essential (primary) hypertension; M19.90 Unspecified osteoarthritis, unspecified site; M81.0 Age-related osteoporosis without current pathological fracture; Z66 Do not resuscitate; Z20.828 Contact with and (suspected) exposure to other viral communicable diseases; Z90.710 Acquired absence of both cervix and uterus; Z98.41 Cataract extraction status, right eye; Z98.42 Cataract extraction status, left eye; Z88.8 Allergy status to other drugs, medicaments and biological substances; Z79.899 Other long term (current) drug therapy; X58.XXXA Exposure to other specified factors, initial encounter; Y93.89 Activity, other specified; Y92.89 Other specified places as the place of occurrence of the external cause; Y99.8 Other external cause status